=== PATIENT | male | born 2005 | race Caucasian/White ===

== ENCOUNTER 2023-03-25 18:57 | Emergency (ER) | payer OTHER, SELFPAY ==
--- NOTE | 2023-03-25 19:06 | CRLHL7_ITS ---
For Patients: As a result of the Century Cures Act, medical imaging exams and procedure reports are released immediately into your electronic medical record. You may view this report before your referring provider. If you have questions, please contact your health care provider. INDICATION: Chest pain TECHNIQUE: Chest 2 views. COMPARISON: Chest x-ray 12/03/2022 FINDINGS: The heart is at the upper limits of normal in size. The pulmonary vasculature is within normal limits. The lungs are clear without focal consolidation, pleural effusion or pneumothorax. Bones are unremarkable. IMPRESSION: The heart is at the upper limits of normal in size. Dictated by Yany Nava MD @ 03/25/2023 8:37:16 PM Dictated by: Yany Nava MD @ 03/25/2023 20:39:03 (Electronically Signed)
[2023-03-25 19:11] VITALS: BP 119/73; PULSE 83; RESP 18; TEMP 37.8; O2SAT 96; BMI 22.9
[2023-03-25 19:17] LABS: Basophils Absolute Auto 0.02 K/uL (0.00-0.30); Basophils Percent Auto 0.3 % (0.0-3.0); Eosinophils Absolute Auto 0.01 K/uL (0.00-0.50); Eosinophils Percent Auto 0.1 % (0.0-7.0); Hematocrit 41.8 % (37.0-53.0); Hemoglobin* 14.2 gm/dL (13.5-17.5); Immature Granulocytes Abs Auto 0.01 K/uL (0.00-0.30); Immature Granulocytes Pct Auto 0.1 %; Lymphocytes Percent Auto 8.9 % (20-44); Mean Corpuscular HGB Conc 34 gm/dL (32-36); Mean Corpuscular Hemoglobin 31 pg (26-34); Mean Corpuscular Volume 92 fL (80-100); Monocytes Percent Auto 9.8 % (0.0-11.0); Neutrophils Percent Auto 80.8 % (42.0-72.0); Platelet Count* 186 K/uL (140-440); RDW Coefficient of Variation % 11.8 % (11.5-15.5); Red Blood Count 4.55 m/uL (4.30-5.90); White Blood Count* 7.77 K/uL (4.50-11.00)
[2023-03-25 19:27] LABS: Slide Review Reflex No
[2023-03-25 19:32] LABS: Chloride* 99 mmol/L (96-114); Sodium* 135 mmol/L (135-149)
[2023-03-25 19:34] LABS: Creatinine* 1.2 mg/dL (0.5-1.5); Est. Creatinine Clearance* 97.65; Estimated Glomerular Filt Rate 89 ml/min
[2023-03-25 19:35] LABS: Anion Gap 7 mEq/L (7-15); Blood Urea Nitrogen* 29 mg/dL (5-24); Carbon Dioxide* 29 mmol/L (20-32)
[2023-03-25 19:36] LABS: Glucose* 140 mg/dL (60-115)
[2023-03-25 20:00] LABS: PCR FLU A Negative PCR FLU A (Negative); PCR FLU B Negative PCR FLU B (Negative); PCR RSV Negative PCR RSV (Negative)
[2023-03-25 20:29] LABS: SARS PCR* POSITIVE SARS-CoV-2 (Negative); Strep A DNA Probe* NOT DETECTED (Not Detectd)
--- NOTE | 2023-03-25 20:53 | ED.GENADULT ---
HPI - General Adult General Chief complaint: Cough Stated complaint: Chest pain, sore throat, feverish Time Seen by Provider: 03/25/23 20:52 History of Present Illness HPI narrative: LL lung/rib area tightness, cough and sore throat, pt feels hot/ chills. pt states november/december in ICU for pnx , states this feels exactly the same. feels more winded than normal. 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 18-year-old young man presenting to the emergency department with concern of potential recurrence of pneumonia. In particular is feeling a left lower chest pressure. May have been an effusion as well. Has been having some cough and sore throat hot chilled. No fever measured peers Was hospitalized for rapidly progressive pneumonia ultimately in the ICU earlier this year unclear etiology. This feels similar. Generally healthy with no underlying health problems otherwise. No respiratory disease. No diabetes. No particular exposures. Related Data Home Medications Medication Instructions Recorded Confirmed cefuroxime axetil 500 mg tablet 500 mg PO BID 12/03/22 12/03/22 monoxidil 12/03/22 Allergies Allergy/AdvReac Type Severity Reaction Status Date / Time No Known Drug Allergies Allergy Verified 12/03/22 10:15 Review of Systems Status of ROS: Reports: 6 or more systems reviewed and unremarkable except as noted in History and below [facility] Medical History Pneumonia ?J18.9 - Pneumonia, unspecified organism (ICD-10) Surgical History (Updated 03/25/23 @ 21:31 by Sam Aguiar RN) No significant past surgical history Social History Smoking Status: Never smoker How often do you have a drink containing alcohol: never How often do you have six or more drinks on one occasion: Never AUDIT-C Alcohol total score: 0 Non-prescribed substance use: denies use Exam Narrative: Exam Narrative: Pleasant. Looks a little flushed in face. Well-built. NAD. Oropharynx is without erythema. Moist. Neck is supple without lymphadenopathy. Lungs are clear. Heart with regular rate and rhythm. Abdomen is flat soft and nontender. Extremities are well perfused without edema. Intermittent small cough. Sounds congested in the nasopharynx. Const: Vital Signs, click to edit/add: Vital Signs - 24 hr 03/25/23 19:11 03/25/23 21:33 03/25/23 21:34 Temperature 100.1 F H 99.5 F 99.5 F Pulse Rate [Left P ulse Oximeter] 83 87 87 Respiratory Rate 18 18 18 Blood Pressure [Ri ght Upper Arm] 119/73 115/71 115/71 Pulse Oximetry 96 96 Oxygen Delivery Me thod Room Air Room Air Documenting provider has reviewed patient's vital signs: yes Course Vital Signs Vital signs: Initial Vital Signs Temperature 100.1 F H 03/25/23 19:11 Temperature Source Temporal Artery Scan 03/25/23 19:11 Pulse Rate 83 03/25/23 19:11 Respiratory Rate 18 03/25/23 19:11 Blood Pressure 119/73 03/25/23 19:11 Blood Pressure Mean 88 03/25/23 19:11 Blood Pressure Position Sitting 03/25/23 19:11 Pulse Oximetry 96 03/25/23 19:11 Oxygen Delivery Method Room Air 03/25/23 19:11 Vital Signs Temperature 100.1 F H 03/25/23 19:11 Pulse Rate 83 03/25/23 19:11 Respiratory Rate 18 03/25/23 19:11 Blood Pressure 119/73 03/25/23 19:11 Pulse Oximetry 96 03/25/23 19:11 Oxygen Delivery Method Room Air 03/25/23 19:11 Temperature 99.5 F 03/25/23 21:34 Pulse Rate 87 03/25/23 21:34 Respiratory Rate 18 03/25/23 21:34 Blood Pressure 115/71 03/25/23 21:34 Pulse Oximetry 96 03/25/23 21:33 Oxygen Delivery Method Room Air 03/25/23 21:33 Medical Decision Making MDM Narrative Medical decision making narrative: Differential could include recurrence of pneumonia, pulmonary effusion, COVID, pneumothorax, pleuritis, pericarditis. Prior to seeing this patient given history and complaint I had requested chest x-ray and triple swab. Indeed positive for COVID. Reviewing chest x-ray I do not appreciate any recurrence infiltrate. No effusion. No pneumothorax. Vitals are stable albeit with mildly suppressed oxygen saturations. See patient discharge plan. Advised to inform potential contacts. Lab Data Lab results reviewed: Yes I reviewed the patient's lab results Labs: Lab Results 03/25/23 Range/Units 19:09 WBC 7.77 (4.50-11.00) K/uL RBC 4.55 (4.30-5.90) m/uL Hgb 14.2 (13.5-17.5) gm/dL Hct 41.8 (37.0-53.0) % MCV 92 (80-100) fL MCH 31 (26-34) pg MCHC 34 (32-36) gm/dL RDW Coeff of Ayo 11.8 (11.5-15.5) % Plt Count 186 (140-440) K/uL Neut % (Auto) 80.8 H (42.0-72.0) % Lymph % (Auto) 8.9 L (20-44) % Wilbarger % (Auto) 9.8 (0.0-11.0) % Eos % (Auto) 0.1 (0.0-7.0) % Baso % (Auto) 0.3 (0.0-3.0) % Neut # (Auto) 6.30 (1.7-7.0) K/uL Lymph # (Auto) 0.70 L (0.90-2.90) K/uL Wilbarger # (Auto) 0.80 (0.00-0.90) K/UL Eos # (Auto) 0.01 (0.00-0.50) K/uL Baso # (Auto) 0.02 (0.00-0.30) K/uL Abs Immat Gran (auto) 0.01 (0.00-0.30) K/uL Imm/Tot Granulo (auto) 0.1 % Sodium 135 (135-149) mmol/L Potassium 4.0 (3.6-5.1) mmol/L Chloride 99 (96-114) mmol/L Carbon Dioxide 29 (20-32) mmol/L Anion Gap 7 (7-15) mEq/L BUN 29 H (5-24) mg/dL Creatinine 1.2 (0.5-1.5) mg/dL Estimated Creat Clear 97.65 Estimated GFR 89 ml/min Glucose 140 H (60-115) mg/dL Calcium 10.0 (8.4-10.6) mg/dL C-Reactive Protein 1.0 (0.5-1.0) mg/dL SARS-CoV-2 (PCR) POSITIVE SARS-CoV-2 A (Negative) Influenza Type A (PCR) Negative PCR FLU A (Negative) Influenza Type B (PCR) Negative PCR FLU B (Negative) RSV (PCR) Negative PCR RSV (Negative) Group A Strep DNA NOT DETECTED (Not Detectd) Discharge Plan Discharge Clinical Impression: COVID-19 Patient Disposition: Home, Self-Care Condition: Stable Additional Instructions: Stay well-hydrated. Can take ibuprofen or acetaminophen for aches and elevated temperature. Alternative to the ibuprofen might be naproxen. If you're becoming increasingly short of breath, consider getting an oxygen monitor and return to the emergency department for oxygen saturations of 90% or less. Recommendations are to quarantine for 10 days from 1st day of symptoms. Prescriptions: No Action cefuroxime axetil 500 mg tablet 500 mg PO BID monoxidil Patient Comments: hair growth Follow Up/Referrals: Provider,Not a Local [Primary Care Provider] - Stand Alone Forms: [employer] Info Instructions
[2023-03-25 21:33] VITALS: BP 115/71; PULSE 87; RESP 18; TEMP 37.5; O2SAT 96
[2023-03-25 21:34] VITALS: BP 115/71; PULSE 87; RESP 18; TEMP 37.5
== END 2023-03-25 21:34 | disposition home or self-care (01) ==
LOC: ED 21:12
PROVIDERS: Emergency Provider Family Medicine
DX: U07.1 COVID-19 (principal)
CPT/HCPCS: 36415; 71046; 80048; 85025; 86140; 87631; 87651; 99284

== ENCOUNTER 2023-03-31 18:36 | Emergency (ER) | payer OTHER, SELFPAY ==
[2023-03-31 18:42] VITALS: BP 125/69; PULSE 71; RESP 16; TEMP 36.5; O2SAT 100; BMI 22.9
--- NOTE | 2023-03-31 18:55 | CRLHL7_ITS ---
For Patients: As a result of the Cures Act, medical imaging exams and procedure reports are released immediately into your electronic medical record. You may view this report before your referring provider. If you have questions, please contact your health care provider. INDICATION: Trauma with left TMJ pain. TECHNIQUE: CT maxillofacial without contrast. COMPARISON: None. FINDINGS: Facial bones: No fractures or bone lesions. Specifically the nasal bones, temporomandibular joints, maxilla and mandible appear intact. Orbits and globes: Unremarkable. Globes are intact. No sign of intraorbital hemorrhage or emphysema. 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 Soft tissues: Unremarkable. IMPRESSION: No sign of acute injury. No finding to explain left TMJ pain. Please note that all CT scans at this facility use dose modulation, iterative reconstruction, and/or weight-based dosing when appropriate to reduce radiation dose to as low as reasonably achievable. Dictated by Cl Conde MD @ 03/31/2023 8:31:50 PM (Electronically Signed)
[2023-03-31 18:59] VITALS: O2SAT 97
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
[2023-03-31 21:10] VITALS: BP 105/57; PULSE 67; RESP 16; O2SAT 100
== END 2023-03-31 21:13 | disposition home or self-care (01) ==
PROVIDERS: Emergency Provider Family Medicine
DX: S00.83XA Contusion of other part of head, initial encounter (principal); M26.609 Unspecified temporomandibular joint disorder, unspecified side; W21.02XA Struck by soccer ball, initial encounter; Y93.66 Activity, soccer
CPT/HCPCS: 70486; 99283; 99284

== ENCOUNTER 2024-05-25 15:01 | Outpatient (RCR) | payer BC, SELFPAY | END 2024-09-22 23:59 | disposition home or self-care (01) | PROVIDERS: Visit Provider Student in an Organized Health Care Education/Training Program | DX: M25.571 Pain in right ankle and joints of right foot (principal); Z51.89 Encounter for other specified aftercare | CPT/HCPCS: 97110; 97161 ==

== ENCOUNTER 2024-09-08 02:03 | Emergency (ER) | payer BC, SELFPAY ==
--- OUTSIDE RECORDS SUMMARY | 2024-09-08 02:06 | XMS_ITS | Encounter Summary ---
Author Organization [facility] Address [address] [place] [address] Care Team Providers Care Health Program Manager Name Role Phone Kvng Hollingsworth MD Primary Care Provider + [phone] Angela Cordero MD Primary Care Provider [phone] Moises Lawrence MD Primary Care Provider [phone] Encounter Details Date Type Department Care Team (Late st Contact Info) Description 09/03/2004 [facility] VISIT [facility] Chaitanya Beckham MD Address Alert - Do Not Mail [address] [place] [address] DIARRHEA Social History Tobacco Use Types Packs/Day Years Used Date Smoking Tobacco: Never Assessed Sex and Gender Information Value Date Recorded Sex Assigned at Male 09/19/2023 7:00 PM PDT Legal Sex Male 7:09 AM PST Gender Identity Male 09/19/2023 7:00 PM PDT Sexual Orientation Straight 09/19/2023 7: 00 PM PDT documented as of this encounter Plan of Treatment Not on file documented as of this encounter Visit Diagnoses Diagnosis DIARRHEA Diarrhea documented in this encounter Care Teams Health Program Manager Relationship Specialty Start Date End Date Kvng Hollingsworth MD [facility] [address] [place] [address] PCP - General Pediatric Medicine 11/08/08 12/10/22 [place] [address] [facility], [address] [place] [address] PCP - General Family Practice 12/11/22 01/24/24 Moises Lawrence MD [address], [address] [address] PCP - General Family Practice 01/25/24 documented as of this encounter
--- OUTSIDE RECORDS SUMMARY | 2024-09-08 02:06 | XMS_ITS | Clinical Summary ---
Author Organization [facility] Address [address] [place] [address] Phone Care Team Providers Care Sfdc Architect Name Role Phone Kvng Hollingsworth Primary Care Provider [phone] Allergies No known active allergies Medications clindamycin 1 % lotion Apply a thin film to the face in the morning 60 mL 11 07/13/2020 Active Doxycycline Hyclate 100 MG tablet Take 1 tablet by mouth 2 times daily.With food and water 60 tablet 5 10/12/2020 Active isotretinoin 40 MG capsule Take 1 Cap by mouth twice a day. Active minoxidil 2.5 MG tabletIndicatio ns:Androgenetic alopecia Take 2.5 mg (1 tab) po qhs 90 tablet 3 06/24/2024 Active Finasteride 1 MG tabletIndicatio ns:Androgenetic alopecia Take 1 mg by mouth daily. 90 tablet 3 06/24/2024 Active ketoconazole 2 % shampooIndicati ons:Seborrheic dermatitis Use every other day. Let sit in hair 5 minutes before rinsing. 120 mL 11 06/24/2024 Active Active Problems Problem Noted Date Diagnosed Date Medication management 03/10/2019 Abnormal LFTs (liver function tests) 02/28/2019 On Accutane therapy 02/24/2019 Acne 12/21/2018 Encounters Date Type Department Care Team Description 06/24/2024 10:45 AM [facility] Office [facility] [address] [place] [address] Chester Rios MD Androgenetic alopecia (Primary Dx); Seborrheic dermatitis; Epidermoid cyst of skin 06/23/2024 10:00 AM PST Office Visit [facility] [address] [place] [address] Chauncey Miller III, DPM Achilles tendinosis of both ankles (Primary Dx); Bilateral ankle pain, unspecified chronicity; Jarocho's deformity of both heels; Gastrocnemius equinus, unspecified laterality 06/23/2024 9:05 AM [facility] Ancillary Procedure [facility] [address] [place] [address] Chauncey Miller III, DPM from Last 3 Months Social History Tobacco Use Types Packs/Day Years Used Date Smoking Tobacco: Never Sex and Gender Information Value Date Recorded Sex Assigned at Not on file Legal Sex Male 3:57 PM PDT Gender Identity Not on file Sexual Orientation Not on file Last Filed Vital Signs Vital Sign Reading Time Taken Comments Blood Pressure 90/58 03/08/2019 2:59 PM PDT Pulse 48 03/08/2019 2:59 PM PDT Temperature - - Respiratory Rate - - Oxygen Saturation 98% 03/08/2019 2:59 PM PDT Inhaled Oxygen Concentration - - Weight 59.9 kg (132 lb) 03/08/2019 2:59 PM PDT Height 174 cm (5' 8.5) 03/08/2019 2:59 PM PDT Body Mass Index 19.78 03/08/2019 2:59 PM PDT Plan of Treatment Health Maintenance Due Date Last Done Comments Depression Screening 2015 HIV Screening 2021 Hepatitis C Screening 2021 COVID-19 Vaccine ( season) 2024 06/23/2022, 06/30/2021, 11/09/2020, Additional history exists Influenza Vaccine (#1) 2024 2, 06/30/2021, 06/30/2021, Additional history exists DTaP/Td/Tdap Vaccines (7 - Td or Tdap) 08/22/2024 08/22/2014, 02/10/2007, 08/07/2004, Additional history exists Well Child Visit 01/25/2025 01/26/2024 Pneumococcal Vaccine Aged Out 2003, 2003, 2003 No longer eligible based on patient's age to complete this topic Hepatitis B Vaccines Completed 02/05/2004, 2003, 2003 HPV Vaccines Completed 05/27/2016, 08/22/2014 Procedures Procedure Name Priority Date/Time Associated Diagnosis Comments XR ANKLE BILATERAL 3V Routine 06/23/2024 9:08 AM PST Bilateral ankle pain, unspecified chronicity from Last 3 Months Results * XR ANKLE BILATERAL 3V (06/23/2024 9:08 AM PST) Anatomical Region Laterality Modality Computed Radiogr aphy Impressions 06/23/2024 12:41 PM PST 3 views of each ankle reviewed via x-ray. Right ankle: No acute fracture or dislocation. Ankle mortise remains intact. No osteochondral defect. No abnormal periosteal reaction. Left ankle: No acute fracture or dislocation. Ankle mortise remains intact. No osteochondral defect. No abnormal periosteal reaction. Chauncey Miller III, DPM IMAGING - GENERAL Fi nal Result from Last 3 Months Insurance [employer] Member Subscriber Plan / Payer (Ef fective 2023-Present) Name:Tha Lincoln Relation to Subscriber:Child Name:Radha Bajwa Date of :1965 Address: [address] [place] [id number] Payer ID:Not on file Type:Not on file Address: [place] [id number] [employer] [place] [id number] [employer] Care Teams Sfdc Architect Relationship Specialty Start Date End Date Kvng Hollingsworth [address] [place] [address] PCP - General 06/25/16
--- OUTSIDE RECORDS SUMMARY | 2024-09-08 02:06 | XMS_ITS | Encounter Summary ---
Author Organization [facility] Address [address] [place] [address] Care Team Providers Care Shoe Cutter Name Role Phone Kvng Hollingsworth MD Primary Care Provider + [phone] Angela Cordero MD Primary Care Provider [phone] Moises Lawrence MD Primary Care Provider [phone] Encounter Details Date Type Department Care Team (Late st Contact Info) Description 02/15/2005 [facility] VISIT [facility] Jeferson Osullivan MD [address] [id number] [facility] DISLOC ELBOW NOS; FALL + STRIKE OBJECT NEC Social History Tobacco Use Types Packs/Day Years [...] as of this encounter Visit Diagnoses Diagnosis CLSD DISLOC ELBOW NOS Closed unspecified dislocation of elbow FALL + STRIKE OBJECT NEC Fall resulting in striking against other object documented in this encounter Care Teams Shoe Cutter Relationship Specialty Start Date End Date Kvng Hollingsworth MD [facility] [address] [place] [address] PCP - General Pediatric Medicine 11/08/08 12/10/22 [place] [address] [facility] [address] [place] [address] PCP - General Family Practice 12/11/22 01/24/24 Moises Lawrence MD [address] [address] PCP - General Family Practice 01/25/24 documented as of this encounter
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
--- OUTSIDE RECORDS SUMMARY | 2024-09-08 02:06 | XMS_ITS | Clinical Summary ---
Author Organization [facility] Address [address] [place] [address] Care Team Providers Care Hobbing Press Operator Name Role Phone Moises Lawrence MD Primary Care Provider [phone] Allergies No known active allergies Medications minoxidil 2.5 MG tablet Take 1.25 mg (1/2 tab) po qhs x 1 month, increase to 2.5 mg (1 tab) po qhs as tolerated. 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 Review of CBC now normal with normal WBC differential following this, and CTA reassuring (obtained after positive D-dimer). Lung exam 01/2024 at baseline normal without wheeze, with good bilateral breath sounds. Patient reports no exercise intolerance and ix very physically active every day. We will monitor clinically. We will consider PFTs if recurrent pneumonia. Resolved Problems Problem Noted Date Diagnosed Date Resolved Date Elevated platelet count 12/12/202201/04 Assessment & Plan (12/12/2022 6:38 AM PDT): Elevated platelets, likely reactive due to recent severe PNA requiring hospitalization, repeat in 1 week at scheduled 12/23 appointment Acute respiratory failure with hypoxia 11/26/2022 12/11/2022 Bilateral pneumonia 11/26/2022 12/12/19 23 Sepsis with acute organ dysfunction 11/26/2022 12/11/2022 Abnormal LFTs (liver function tests) 02/28/2019 12/11/2022 On Accutane therapy 02/24/2019 12/12/19 23 Acne vulgaris 12/21/2018 12/11/2022 Immunizations Name Administration Dates Next Due COVID-19 Pfizer mRNA monoval ent 12 yrs and older 10/18/2020 DTaP (Infanrix) 02/10/2007, 5,2003,05/31,2003 HPV 9-valent (Gardasil 9) 05/27/2016 HPV quadrivalent (Gardasil) 08/22/2014 Hepatitis A pediatric/adolescent 03/04/2006,02/05 Hepatitis B pediatric/adolescent 02/05/2004,07/07,2003 Hib PRP-T (ActHIB) 02/05/2004, 4,2003,04/10 Influenza live nasal trivale nt (FluMist) 07/21/2011,03/05/2010,02/20/2009 Influenza quadrivalent 05/27/2016 Influenza quadrivalent PF 06/23/2022,06/30/2021 Influenza trivalent 04/06/2015, 4,07/19/2012,06/16 Influenza trivalent PF 08/17/2007,06/18/2005 Influenza, unspecified 04/23/2004 MMR 02/10/2007,02/05/2004 Meningococcal ACWY conjugate (Menactra) 01/05/2020,08/22/2014 Novel influenza Q4T1-05, all formulations 05/02/2009 Pneumococcal conjugate PCV7 (Prevnar) 2003 ,2003,2003 Poliovirus inactivated IPV (IPOL) 2006,08/07/2004,2003,05/31,2003 Tdap 08/22/2014 Varicella live (Varivax) 02/10/2007,08/07/2004 Family History Medical History Relation Comments No Known Problems Brother No Known Problems Father No Known Problems Maternal Grandfather No Known Problems Maternal Grandmother Leukemia Mother age 14-15 No Known Problems Paternal Grandfather No Known Problems Paternal Grandmother No Known Problems Sister Relation Status Comments Brother Alive Father Alive Maternal Grandfather Alive Maternal Grandmother Alive Mother Alive Paternal Grandfather Alive Paternal Grandmother Alive Sister Alive Social History Tobacco Use Types Packs/Day Years Used Date Smoking Tobacco: Never Smokeless Tobacco: Never Tobacco Cessation:Counseling Given: Not Answered Alcohol Use Standard Drinks/Week Comments Never 0 (1 standard drink = 0.6 oz pur e alcohol) PHQ-2 Answer Date Recorded PHQ2 Total Score 0 01/26/2024 Exercise Vital Sign Answer Date Recorde d On average, how many days pe r week do you engage in moderate to strenuous exercise (like a brisk walk)? 7 days 12/11/2022 On average, how many minutes do you engage in exercise at this level? 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 Not on file Not on file Not on file Last Filed Vital Signs Vital Sign Reading Time Taken Comments Blood Pressure 126/74 01/26/2024 3:50 PM PDT Pulse 45 01/26/2024 3:50 PM PDT Temperature 36.8 C (98.2 F) 01/26/2024 3:50 PM PDT Respiratory Rate 15 01/26/2024 3:50 PM PDT Oxygen Saturation 100% 01/26/2024 3:50 PM PDT Inhaled Oxygen Concentration - - Weight 72.6 kg (160 lb) 01/26/2024 3:50 PM PDT Height 175.3 cm (5' 9) 01/26/2024 3:50 PM PDT Body Mass Index 23.63 01/26/2024 3:50 PM PDT Plan of Treatment Health Maintenance Due Date Last Done Comments Meningococcal B Vaccine (1 of 2 - Standard) 2019 COVID-19 Vaccine ( season) 2024 06/23/2022, 06/30/2021, 11/09/2020, Additional history exists Influenza Vaccine (#1) 2024 , 06/30/2021, 05/27/2016, Additional history exists DTaP, Tdap and Td Vaccines (7 - Td or Tdap) 08/22/2024 08/22/2014, 02/10/2007, 08/07/2004, Additional history exists Depression Screening (PHQ-2) 01/25/2025 01/26/2024 Well Care: 16y-21y 01/25/2025 01/26/2024 Pneumococcal Vaccine: Pediatrics (0-5 years) and At-Risk Patients (6-49 years) Aged Out 2003, 2003, 2003 No longer eligible based on patient's age to complete this topic Hepatitis B Vaccine Completed 02/05/2004, 2003, 2003 Hepatitis A Vaccine Completed 03/04/2006, 5 HPV Vaccine Completed 05/27/2016, 08/22/2014 HIV Screening Addressed 07/07/2022 Overridden wit h the intention of not completing the topic Hepatitis C Screening Completed 01/26/2024 Procedures Procedure Name Priority Date/Time Associated Diagnosis Comments HEPATITIS C AB WITH REFLEX PCR Remote Lab 01/26/2024 4:28 PM PDT Need for hepatitis C screening test from Last 3 Months or Most Recently Relevant to Health Maintenance Results * Hepatitis C Ab with REFLEX PCR (01/26/2024 4:28 PM PDT) Hepatitis C Antibody w/Rflx PCR Nonreactive NREAC 01/27/2024 9:27 AM PDT Lab Med, Virology Hepatitis C Antibody Interpretation No evidence of antibody to hepatitis C virus (HCV). Anti-HCV may develop slowly (6 weeks - 6 months) over the course of hepatitis C virus infection. Rarely it may be absent in cases of chronic infection. Anti-HCV may also disappear after recovery from acute, self-limited disease. 01/27/2024 9:27 AM PDT [facility] Lab Med, Virology Blood specimen (specimen) 01/26/2024 4:28 PM PDT us Moises Lawrence MD LAB BLOOD ORDERABLES Final Re sult LAB MED, VIROLOGY [address] [place] [address] Lab Med, Virology [address] [place] [address] from Last 3 Months or Most Recently Relevant to Health Maintenance Insurance [facility] [employer] Care Teams Hobbing Press Operator Relationship Specialty Start Date End Date Moises Lawrence MD [address], [facility] [address] [place] [address] PCP - General Family Practice 01/25/24
--- OUTSIDE RECORDS SUMMARY | 2024-09-08 02:06 | XMS_ITS | Clinical Summary ---
Author Organization [facility] Address [address] [place] [address] Care Team Providers Care Process Worker Name Role Phone Pcp, No Primary Care Provider Unavailabl e Allergies No known active allergies Medications fluticasone (50 mcg per actuation) nasal solution (FLONASE) Inhale 1 [place] into affected nostril(s) once daily. Active minoxidiL (LONITEN) 2.5 mg tab Take 2.5 mg by mouth at bedtime. Active loratadine (Claritin) 10 mg tablet Take 10 mg by mouth once daily if needed for Allergy Symptoms. 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 Bilateral pneumonia 11/26/2022 Sepsis with acute organ dysfunction 11/26/2022 Acne 12/21/2018 Resolved Problems Problem Noted Date Diagnosed Date Resolved Date Acute respiratory failure with hypoxia 11/26/2022 05/13/2024 Family History Medical History Relation Name Comments Leukemia Mother Relation Name Status Comments Mother Social History Tobacco Use Types Packs/Day Years Used Date Smoking Tobacco: Never Smokeless Tobacco: Never Tobacco Cessation:Counseling Given: Yes Alcohol Use Standard Drinks/Week Comments Yes 0 (1 standard drink = 0.6 oz pur e alcohol) mild / social Sex and Gender Information Value Date Recorded Sex Assigned at Not on file Legal Sex Male 2:27 PM CDT Gender Identity Not on file Sexual Orientation Not on file Obstetrics History Last Filed Vital Signs Vital Sign Reading Time Taken Comments Blood Pressure 118/68 05/13/2024 10:41 AM DRUG ABUSE TECHNICIAN Pulse 50 05/13/2024 10:41 AM DRUG ABUSE TECHNICIAN Temperature 36.8 C (98.2 F) 11/29/2022 8:17 AM CDT Respiratory Rate 20 11/29/2022 8:17 AM CDT Oxygen Saturation 98% 05/13/2024 10:41 AM DRUG ABUSE TECHNICIAN Inhaled Oxygen Concentration - - Weight 72.6 kg (160 lb) 05/11/2023 3:20 PM DRUG ABUSE TECHNICIAN Height 175.3 cm (5' 9) 11/27/2022 5:00 AM CDT Body Mass Index - - Plan of Treatment Health Maintenance Due Date Last Done Comments Tdap 2014 Depression screening for age 12+ 2015 HIV for age 15-65 2018 HPV series for age 9-26 (1 - Male 3-dose series) 2018 BMI (ht and wt on same day) for age 18+ 2021 Hepatitis C screening for age 18-79 2021 Tetanus booster 2023 COVID-19 vaccine series ( season) 2024 06/23/2022, 06/30/2021, 11/09/2020, Additional history exists Influenza for age 9-49 03/06/2024 Meningococcal series for age 11-21 Aged Out No longer eligible based on patient's age to complete this topic Pneumococcal series for age 6-49 Aged Out No longer eligible based on patient's age to complete this topic Insurance [id number] Advance Directives * Full Code (Latest Code Status on File) Date Activated Date Inactivated Comments 11/26/2022 9:38 PM 11/29/2022 1:53 PM Question Answer Comments Code Status Discussion: Other Care Teams Process Worker Relationship Specialty Start Date End Date Pcp, No . PCP - General 11/26/22
--- OUTSIDE RECORDS SUMMARY | 2024-09-08 02:06 | XMS_ITS | Clinical Summary ---
Author Organization [facility] Address [address] [place] [address] Care Team Providers Care Accounting Director Name Role Phone Unavailable Primary Care Provider Unavailabl e Source Comments NOTE: The information displayed by Care Everywhere is extracted from the complete medical record and may not identify all current or past patient conditions.[facility] Immunizations Immunization Administration Dates Next Due *STANDARD DOSE SYRINGE* (FluARIX,FluLAVAL,FluZONE) (6+ mos) TRI 08/17/2007,06/18/2005 *STANDARD DOSE SYRINGE* (FluLAVAL,FluZONE,FluARIX or AFLURIA) (6+ mos) QUAD 06/23/2022,06/30/2021 *VIAL* FluZONE/FluLAVAL (3+ yrs) QUAD 05/27/2016 DTaP (Diphtheria, Tetanus, a cellular Pertussis) 02/10/2007,08/07/2004,2003,05/31,2003 FluVIRIN (4+ years) Tri *VIAL* 5,04/24/2014,07/19/2012,06/16 H1N1 Influenza (.50 not PF) 05/02/2009 HPV, 9-Valent (GARDASIL 9, H uman Papillomavirus) 05/27/2016 HPV, Quadrivalent (GARDASIL 4) 08/22/2014 HepA (Hepatitis A) 03/04/2006,03/04/2005 HepB (Hepatitis B) 02/05/2004,2003, 003 Hib (ACTHIB/HIBERIX,PRP-T) 02/05/2004,,2003,04/10 IPV (Polio) 02/10/2007, 5,2003,05/31,2003 Influenza (.25 PF) 08/17/2007,06/18/2005 Influenza (.50 PF) 04/23/2004 Influenza (.50 not PF) 06/16/2006 Influenza (0.5 not PF) 07/19/2012 Influenza (Flumist) 07/21/2011,03/05/2010,2008 Influenza, unspecified formulation 04/23/2004 MMR (Measles, Mumps, Rubella) 02/10/2007, 004 Meningococcal Conjugate Vacc ine (MENACTRA) 01/05/2020,08/22/2014 Meningococcal Conjugate Vacc ine (MENVEO) 08/22/2014 Novel Influenza H1N1, unspec ified formulation 05/02/2009 PCV7 (Pneumococcal Conjugate Vaccine 7 valent) 2003,2003,2003 Pfizer SARS-CoV-2 Vaccinatio n (12 + y/o) (PURPLE CAP) 06/30/2021,11/09/2020,10/18/2020 Pfizer SARS-CoV-2 Vaccinatio n (12 + y/o)(Bivalent Formulation)(MANZANARES CAP) 06/23/2022 Tdap (Tetanus, Diphtheria, a cellular Pertussis) 08/22/2014 Varicella 02/10/2007,08/07/2004 Social History Tobacco Use Types Packs/Day Years Used Date Smoking Tobacco: Never Assessed Sex and Gender Information Value Date Recorded Sex Assigned at Not on file Legal Sex Male 9:30 PM PST Gender Identity Not on file Sexual Orientation Not on file Plan of Treatment Health Maintenance Due Date Last Done Comments Adult HIV Screen (1-time) 2018 Hep C Screening (1-time) 2021 FLU VACCINE (#1) 03/06/2024 06/23/2022, , 05/27/2016, Additional history exists Vaccine: COVID-19 ( season) 2024 06/23/2022, 06/30/2021, 11/09/2020, Additional history exists Vaccine: [id number] (7 - T d or Tdap) 08/22/2024 08/22/2014, 02/10/2007, 08/07/2004, Additional history exists Vaccine: HPV Completed 05/27/2016, 08/22/2014 Advance Directives For more information, please contact: [phone] Documents on File Type Date Recorded Patient Research Physicist Expl anation Durable Power of Content Engineer
--- OUTSIDE RECORDS SUMMARY | 2024-09-08 02:06 | XMS_ITS | Clinical Summary ---
Author Organization [facility] Address [address] [place] [address] Care Team Providers Care Neuroscientist Name Role Phone Kvng Hollingsworth MD Primary Care Provider [phone] Allergies No known active allergies Medications doxycycline (VIBRA-TABS) 100 mg tablet 08/11/2020 Active clindamycin (CLEOCIN T) 1 % lotion 07/13/2020 Active Social History Tobacco Use Types Packs/Day Years Used Date Smoking Tobacco: Never Assessed Financial Resource Strain Answer Date R ecorded Financial Resource Strain Not on file 2022 0 06/15/2023 Food Insecurity Answer Date Recorded Worried About Running Out of Food in the Last Ye ar Not on file 06/15/2023 Ran Out of Food in the Last Year Not on file 06/15/2023 Difficult to Find Nutritious Food in the Last Ye ar Not on file 06/15/2023 0 06/15/2023 Transportation Needs Answer Date Record ed Lack of Transportation (Medical) Not on file 06/15/2023 Lack of Transportation (Non-Medical) Not on file 06/15/2023 0 06/15/2023 Housing Stability Answer Date Recorded Housing Situation Today Not on file 06/15/20 23 Worried About Stable Housing Next Two Months Not on file 06/15/[address] You [address] Not on file 06/15/2023 0 06/15/2023 Sex and Gender Information Value Date Recorded Sex Assigned at Male 01/12/2018 12:34 PM PDT Legal Sex Male 6:10 AM PST Gender Identity Not on file Sexual Orientation Not on file Last Filed Vital Signs Vital Sign Reading Time Taken Comments Blood Pressure 121/66 09/08/2020 3:28 PM PST Pulse 71 09/08/2020 3:28 PM PST Temperature 36.9 C (98.4 F) 09/08/2020 3:28 PM PST Respiratory Rate 28 09/08/2020 3:28 PM PST Oxygen Saturation 100% 09/08/2020 3:28 PM PST Inhaled Oxygen Concentration - - Weight 67 kg (147 lb 11.3 oz) 09/08/2020 3:25 PM PST Height 141 cm (4' 7.51) 05/22/2014 1:14 PM PST Body Mass Index - - Plan of Treatment Health Maintenance Due Date Last Done Comments MMR Vaccines (1 of 1 - Stand elliot series) 01/29/2004 DTaP/Tdap/Td Vaccines (1 - Tdap) 2010 Varicella Vaccine (1 of 2 - 13+ 2-dose series) 01/29/2016 HPV Vaccines (1 - Male 3-dos e series) 2018 Meningococcal B Vaccine (1 o f 2 - Standard) 2019 Hepatitis B Vaccines (1 of 3 - 19+ 3-dose series) 2022 COVID-19 Vaccine (1 - 2023-2 5 season) 2024 Influenza Vaccine (#1) 2024 HIB Vaccines Aged Out No longer eligi ble based on patient's age to complete this topic Hepatitis A Vaccines Aged Out No long er eligible based on patient's age to complete this topic Meningococcal Vaccine Aged Out No amada shawn eligible based on patient's age to complete this topic Pneumococcal Vaccine Aged Out No long er eligible based on patient's age to complete this topic Polio Vaccine Aged Out No longer elig ible based on patient's age to complete this topic Respiratory Syncytial Virus (RSV) Aged Out No longer eligible based on patient's age to complete this topic Rotavirus Vaccines Aged Out No longer eligible based on patient's age to complete this topic Insurance [employer] Care Teams Neuroscientist Relationship Specialty Start Date End Date Kvng Hollingsworth MD [address] [place] [phone] PCP - General 03/20/08
--- OUTSIDE RECORDS SUMMARY | 2024-09-08 02:06 | XMS_ITS | Clinical Summary ---
Author Organization [facility] Address [address] [place] [address] Care Team Providers Care Opener Name Role Phone Kvng Hollingsworth MD Primary Care Provider [phone] Allergies No known active allergies Medications minoxidil [...] Health Maintenance Due Date Last Done Comments Hepatitis C Screening 2003 Well Child Check 2006 Human Immunodeficiency Virus (HIV) Screening 2018 COVID-19 Vaccine (5 - 4-2 5 season) 2024 06/23/2022, 06/30/2021, 11/09/2020, Additional history exists Vaccine: Influenza (#1) 2024 06/23/20, 06/30/2021, 05/27/2016, Additional history exists Vaccine: Dtap/Tdap/Td (7 - T d or Tdap) 08/22/2024 08/22/2014, 02/10/2007, 08/07/2004, Additional history exists Vaccine: Hib Completed 02/05/2004, 07/07, 2003, Additional history exists Vaccine: HPV Completed 05/27/2016, 08/22/2014 Insurance [facility] [employer] PPO Care Teams Opener Relationship Specialty Start Date End Date Kvng Hollingsworth MD [address] [place] [address] PCP - General 12/13/18
--- OUTSIDE RECORDS SUMMARY | 2024-09-08 02:07 | XMS_ITS | Referral Summary ---
Author Organization [facility] Address [address] [place] [address] Phone Care Team Providers Care Oracle Manager Name Role Phone Kvng Hollingsworth Primary Care Provider [phone] Encounters Date Type Department Care Team Description 06/24/2024 10:45 AM [facility] Office Visit [facility] Dermatology [address] [place] [address] Chester Rios MD Androgenetic alopecia (Primary Dx); Seborrheic dermatitis; Epidermoid cyst of skin 06/23/2024 9:05 AM [facility] Ancillary Procedure [facility] [address] [place] [address] Chauncey Miller III, DPM 06/23/2024 10:00 AM [facility] Office Visit [facility] Podiatry [address] [place] [address] Chauncey Miller III, DPM Achilles tendinosis of both ankles (Primary Dx); Bilateral ankle pain, unspecified chronicity; Jarocho's deformity of both heels; Gastrocnemius equinus, unspecified laterality from Last 3 Months Allergies No known active allergies Medications clindamycin [...] 02/28/2019 On Accutane therapy 02/24/2019 Acne 12/21/2018 Social History Tobacco Use Types Packs/Day Years [...] 03/08/2019 2:59 PM PDT Plan of Treatment Not on file Procedures Procedure Name Priority Date/Time Associated Diagnosis [...] Last 3 Months Insurance [employer] [place] [id number] [facility] [employer] Care Teams Oracle Manager Relationship Specialty Start Date End Date Kvng Hollingsworth [address] [place] [address] PCP - General 06/25/16
[2024-09-08 02:10] VITALS: BP 144/76; PULSE 80; RESP 21; TEMP 37.2; O2SAT 100; BMI 23.6
[2024-09-08] MEDS: ONDANSETRON 2 MG/ML inj 4 MG IVP (02:45)
[2024-09-08] MEDS: 0.9 % SODIUM CHLORIDE 1000 ml 1,000 ML IV (02:46)
[2024-09-08 02:47] LABS: Basophils Absolute Auto 0.02 K/uL (0.00-0.30); Basophils Percent Auto 0.2 % (0.0-3.0); Eosinophils Absolute Auto 0.06 K/uL (0.00-0.50); Eosinophils Percent Auto 0.6 % (0.0-7.0); Hematocrit 49.1 % (37.0-53.0); Hemoglobin* 16.6 gm/dL (13.5-17.5); Lymphocytes Percent Auto 6.7 % (20-44); Mean Corpuscular HGB Conc 34 gm/dL (32-36); Mean Corpuscular Hemoglobin 31 pg (26-34); Mean Corpuscular Volume 91 fL (80-100); Monocytes Percent Auto 5.1 % (0.0-11.0); Neutrophils Percent Auto 86.4 % (42.0-72.0); Platelet Count* 221 K/uL (140-440); RDW Coefficient of Variation % 12.1 % (11.5-15.5); Red Blood Count 5.41 m/uL (4.30-5.90)
[2024-09-08 02:52] LABS: Slide Review Reflex No
--- NOTE | 2024-09-08 02:54 | ED.ANXIETY ---
HPI - Anxiety General Date Seen: 09/08/24 Chief Complaint: Anxiety Stated Complaint: mental health issue/anxiety Time Seen by Provider: 09/08/24 02:16 Source: patient Mode of arrival: ambulatory Limitations: no limitations History of Present Illness HPI narrative: Patient is a 19-year-old [employer] student who had couple of episodes of vomiting tonight. He still feels nauseated. He had one episode of diarrhea since his arrival in the ER but none prior. No hematemesis. After his last episode of vomiting he felt lightheaded and short of breath. This shortness of breath triggered memories of that admission for respiratory failure two years ago. This made him anxious and panicky. He denies anxiety in general is not on any medications for anxiety. His only medications are finasteride and minoxidil for hair loss. No abdominal pain. No fevers or chills. No questionable food. Related Data Home Medications ?Medication ?Instructions ?Recorded ?Confirmed monoxidil 12/03/22 Allergies Allergy/AdvReac Type Severity Reaction Status Date / Time No Known Drug Allergies Allergy Verified 09/08/24 02:13 Review of Systems Narrative: Review of systems is outlined above otherwise noted to be negative. 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 HEENT: Conjunctiva clear. Posterior pharynx is clear without erythema or exudate. Neck is supple without adenopathy Lungs: Clear to auscultation in all baltazar. No wheezes, rales, rhonchi. Heart: Regular rate and rhythm without murmur. Abdomen: Soft and nontender. No guarding, rigidity, rebound. Bowel sounds are normal. No palpable masses. Extremities: No cyanosis or edema. Good distal pulses. Skin: No abnormalities noted of the exposed skin. Neurologic: Awake, alert, fully oriented. He is very anxious. Neurologic exam is nonfocal. Const: Vital Signs, click to edit/add: Vital Signs - 24 hr 09/08/24 02:10 Temperature 99.0 F Pulse Rate [Right Pulse Oximeter] 80 Respiratory Rate 21 Blood Pressure [Ri ght Upper Arm] 144/76 H Pulse Oximetry 100 Oxygen Delivery Me thod Room Air Course Course ED Course: Patient seen and examined. IV is established he is given a L of normal saline as well as Zofran 4 mg IV. Labs are drawn. Reevaluation(s) Reevaluation #1: CBC is normal. Basic metabolic panel is normal other than a BUN of 39. LFTs show a bilirubin of 2.1 with a normal direct bili, AST is 51. Lipase is normal. His nausea resolved with the Zofran. He declined a need for anything for anxiety. He is comfortable with discharge. Vital Signs Vital signs: Initial Vital Signs Temperature 99.0 F 09/08/24 02:10 Temperature Source Temporal Artery Scan 09/08/24 02:10 Pulse Rate 80 09/08/24 02:10 Pulse Rhythm Regular 09/08/24 02:10 Pulse Strength 3+ Normal 09/08/24 02:10 Respiratory Rate 21 09/08/24 02:10 Blood Pressure 144/76 H 09/08/24 02:10 Blood Pressure Mean 98 09/08/24 02:10 Blood Pressure Position Sitting 09/08/24 02:10 Pulse Oximetry 100 09/08/24 02:10 Oxygen Delivery Method Room Air 09/08/24 02:10 Vital Signs Temperature 99.0 F 09/08/24 02:10 Pulse Rate 80 09/08/24 02:10 Respiratory Rate 21 09/08/24 02:10 Blood Pressure 144/76 H 09/08/24 02:10 Pulse Oximetry 100 09/08/24 02:10 Oxygen Delivery Method Room Air 09/08/24 02:10 Temperature 99.0 F 09/08/24 02:10 Pulse Rate 80 09/08/24 02:10 Respiratory Rate 21 09/08/24 02:10 Blood Pressure 144/76 H 09/08/24 02:10 Pulse Oximetry 100 09/08/24 02:10 Oxygen Delivery Method Room Air 09/08/24 02:10 Medications Administered Medications: Generic Name Dose Route Start Last Admin Trade Name Freq PRN Reason Stop Dose Admin Sodium Chloride 1,000 mls @ 1,000 mls/hr 09/08/24 02:28 09/08/24 02:46 0.9 % Sodium Chloride 1000 Ml IV 09/08/24 03:27 1,000 mls/hr .Q1H JERI Administration Discontinued Medications Generic Name Dose Route Start Last Admin Trade Name Mayankq PRN Reason Stop Dose Admin Ondansetron HCl 4 mg 09/08/24 02:27 09/08/24 02:45 Ondansetron 2 Mg/Ml Inj IVP 09/08/24 02:28 4 mg ONCE ONE Administration MDM - Anxiety Lab Data Labs: Lab Results 09/08/24 Range/Units 02:35 WBC 9.90 (4.50-11.00) K/uL RBC 5.41 (4.30-5.90) m/uL Hgb 16.6 (13.5-17.5) gm/dL Hct 49.1 (37.0-53.0) % MCV 91 (80-100) fL MCH 31 (26-34) pg MCHC 34 (32-36) gm/dL RDW Coeff of Ayo 12.1 (11.5-15.5) % Plt Count 221 (140-440) K/uL Neut % (Auto) 86.4 H (42.0-72.0) % Lymph % (Auto) 6.7 L (20-44) % [place] % (Auto) 5.1 (0.0-11.0) % Eos % (Auto) 0.6 (0.0-7.0) % Baso % (Auto) 0.2 (0.0-3.0) % Neut # (Auto) 8.60 H (1.7-7.0) K/uL Lymph # (Auto) 0.70 L (0.90-2.90) K/uL [place] # (Auto) 0.50 (0.00-0.90) K/UL Eos # (Auto) 0.06 (0.00-0.50) K/uL Baso # (Auto) 0.02 (0.00-0.30) K/uL Abs Immat Gran (auto) 0.10 (0.00-0.30) K/uL Imm/Tot Granulo (auto) 1.0 % Sodium 137 (135-149) mmol/L Potassium 4.6 (3.6-5.1) mmol/L Chloride 98 (96-114) mmol/L Carbon Dioxide 28 (20-32) mmol/L Anion Gap 11 (7-15) mEq/L BUN 39 H (5-24) mg/dL Creatinine 1.0 (0.5-1.5) mg/dL Estimated Creat Clear 116.85 Estimated GFR 110 ml/min Glucose 109 (60-115) mg/dL Calcium 9.7 (8.4-10.6) mg/dL Total Bilirubin 2.1 H (0.1-1.5) mg/dL Direct Bilirubin 0.4 (0.0-0.5) mg/dL AST 51 H (12-35) U/L ALT 33 (4-50) U/L Alkaline Phosphatase 107 (40-150) U/L Total Protein 7.8 (6.0-8.3) g/dL Albumin 5.0 (3.3-5.0) g/dL Lipase 61 (23-300) U/L Discharge Plan Discharge Clinical Impression: Nausea & vomiting, Panic attack Patient Disposition: Home, Self-Care Condition: Improved Additional Instructions: Rest, clear liquids in frequent small amounts, advance diet slowly as tolerated. Tylenol for pain. Follow-up if symptoms are worsening or not improving. Your labs are all reassuring. Prescriptions: No Action monoxidil Patient Comments: hair growth Follow Up/Referrals: Provider,Not a Local [Primary Care Provider] - Stand Alone Forms: [address] [employer] Info Instructions
[2024-09-08 02:55] LABS: Chloride* 98 mmol/L (96-114); Sodium* 137 mmol/L (135-149)
[2024-09-08 02:56] LABS: Potassium* 4.6 mmol/L (3.6-5.1)
[2024-09-08 02:58] LABS: Alkaline Phosphatase* 107 U/L (40-150); Anion Gap 11 mEq/L (7-15); Aspartate Amino Transferase* 51 U/L (12-35); Bilirubin Direct* 0.4 mg/dL (0.0-0.5); Bilirubin Total* 2.1 mg/dL (0.1-1.5); Blood Urea Nitrogen* 39 mg/dL (5-24); Carbon Dioxide* 28 mmol/L (20-32); Est. Creatinine Clearance* 116.85; Estimated Glomerular Filt Rate 110 ml/min; Glucose* 109 mg/dL (60-115); Total Protein* 7.8 g/dL (6.0-8.3)
[2024-09-08 02:59] LABS: Alanine Aminotransferase* 33 U/L (4-50); Calcium* 9.7 mg/dL (8.4-10.6); Lipase* 61 U/L (23-300)
--- OUTSIDE RECORDS SUMMARY | 2024-09-08 03:07 | XMS_ITS | Clinical Summary ---
Author Organization [facility] Address [address] [place] [address] Care Team Providers Care Receivable Manager Name Role Phone Beck Lawrence MD Primary Care Provider [phone] Allergies No known active allergies Medications minoxidil [...] Meningococcal ACWY conjugate (Menactra) 01/05/2020,08/22/2014 Novel influenza Q7V2-05, all formulations 05/02/2009 Pneumococcal conjugate PCV7 (Prevnar) [...] Procedure Name Priority Date/Time Associated Diagnosis Comments PREMANAGE Routine 09/08/2024 3:05 AM PST Procedure Note - 09/08/2024 3:05 AM PSTThis note is in progress. Patient has visited an external emergency department or has beenhospitalized outside of [facility] --MOST RECENT VISIT-- ED Admit:09/08/24 03:04 Location:[facility] Attending Provider:Wilmer Encounter Type:Emergency Major Class:Emergency Chief Complaint:mental health issue/anxiety Diagnosis: ED/UCC VISIT TRACKING (3 MO.) Visit Date Location [facility] TypeDx/Complaint -------- ------- 09/08/2024 03:04 [facility]. MNEmergency mental health issue/anxiety INPATIENT VISIT TRACKING (1 MO.) Visit Date Location [facility] Type Dx/Complaint -------- ------- ---- ED VISIT COUNT (12 MO.) Visits Location ------ --------- 1 [facility] and [place] [address] Total Note: Visits indicate total known visits. --- --CARE GUIDELINES-- (Below are the most recent care guidelines entered by a Medicine careprovider in [facility]. If Medicine guidelines do not exist in [facility], the mostrecent care guideline entered by an external hospital care provider isdisplayed.) [facility] has no Care Guidelines for this patient. Security Events No recent Security Events currently on file --CARE PROVIDERS-- CARE PROVIDERS Name Phone TypeService Dates ---- ----- BECK LAWRENCE [phone] Family Medicine: GeriatricMedicine Unknown - Current WILL KING [phone] Internal MedicineUnknown - Current HEPATITIS C AB WITH REFLEX PCR Remote Lab 01/26/2024 4:28 PM PDT Need for hepatitis C screening test from Last 3 Months or Most Recently Relevant to Health Maintenance Results * Hepatitis C Ab with REFLEX PCR (01/26/2024 4:28 PM PDT) Hepatitis C Antibody w/Rflx PCR Nonreactive NREA 01/27/2024 9:27 AM PDT Lab Med, Virology Hepatitis C Antibody Interpretation No evidence of antibody to hepatitis C virus (HCV). Anti-HCV may develop slowly (6 weeks - 6 months) over the course of hepatitis C virus infection. Rarely it may be absent in cases of chronic infection. Anti-HCV may also disappear after recovery from acute, self-limited disease. 01/27/2024 9:27 AM PDT Lab Med, Virology Blood specimen (specimen) 01/26/2024 4:28 PM PDT us Beck Lawrence MD LAB BLOOD ORDERABLES Final Re sult LAB MED, VIROLOGY [address] [place] [address] Lab Med, Virology [address] [place] [address] from Last 3 Months or Most Recently Relevant to Health Maintenance Insurance [facility] PLAN Care Teams Receivable Manager Relationship Specialty Start Date End Date Beck Lawrence MD [address] [address] PCP - General Family Practice 01/25/24
--- OUTSIDE RECORDS SUMMARY | 2024-09-08 03:07 | XMS_ITS | Clinical Summary ---
Author Organization [facility] Address [address] [place] [address] Care Team Providers Care Elevator Worker Name Role Phone Unavailable Primary Care Provider Unavailabl e Source Comments NOTE: The information displayed by Care Everywhere is extracted from the complete medical record and may not identify all current or past patient conditions.[facility] Immunizations Immunization Administration Dates Next [...] 06/23/2022, 06/30/2021, 11/09/2020, Additional history exists Vaccine: SNbI-Hwor-Wz (7 - T d or Tdap) 08/22/2024 08/22/2014, 02/10/2007, 08/07/2004, Additional history exists Vaccine: HPV Completed 05/27/2016, 08/22/2014 Advance Directives For more information, please contact: [phone] Documents on File Type Date Recorded Patient Percher Expl anation Durable Power of It Application Administrator
--- OUTSIDE RECORDS SUMMARY | 2024-09-08 03:07 | XMS_ITS | Clinical Summary ---
Author Organization [facility] Address [address] [place] [address] Care Team Providers Care Underground Truck Operator Name Role Phone Pcp, No Primary Care Provider Unavailabl e Allergies No known active allergies Medications fluticasone (50 mcg per actuation) nasal solution (FLONASE) Inhale 1 Sharon into affected nostril(s) once daily. Active minoxidiL [...] Comments Blood Pressure 118/68 05/13/2024 10:41 AM BAIL AGENT Pulse 50 05/13/2024 10:41 AM BAIL AGENT Temperature 36.8 C (98.2 F) 11/29/2022 8:17 AM CDT Respiratory Rate 20 11/29/2022 8:17 AM CDT Oxygen Saturation 98% 05/13/2024 10:41 AM BAIL AGENT Inhaled Oxygen Concentration - - Weight 72.6 kg (160 lb) 05/11/2023 3:20 PM BAIL AGENT Height 175.3 cm (5' 9) 11/27/2022 5:00 [...] patient's age to complete this topic Insurance [id number]-AR-[facility] Advance Directives * Full Code (Latest Code Status on File) Date Activated Date Inactivated Comments 11/26/2022 9:38 PM 11/29/2022 1:53 PM Question Answer Comments Code Status Discussion: Other Care Teams Underground Truck Operator Relationship Specialty Start Date End Date Pcp, No . PCP - General 11/26/22
--- OUTSIDE RECORDS SUMMARY | 2024-09-08 03:07 | XMS_ITS | Clinical Summary ---
Author Organization [facility] Address [address] [place] [address] Care Team Providers Care Senior Laboratory Technician Name Role Phone Kvng Hollingsworth MD Primary Care Provider [phone] Allergies No known active allergies Medications minoxidil [...] exists Vaccine: HPV Completed 05/27/2016, 08/22/2014 Insurance [facility] [employer] CHOICE PPO Care Teams Senior Laboratory Technician Relationship Specialty Start Date End Date Kvng Hollingsworth MD [address] [place] [address] PCP - General 12/13/18
--- OUTSIDE RECORDS SUMMARY | 2024-09-08 03:07 | XMS_ITS | Encounter Summary ---
Author Organization [facility] Address [address] [place] [address] Care Team Providers Care Director Of Marketing Name Role Phone Kvng Hollingsworth MD Primary Care Provider [phone] Angela Cordero MD Primary Care Provider [phone] Moises Lawrence MD Primary Care Provider [phone] Encounter Details Date Type Department Care Team (Late st Contact Info) Description 09/03/2004 [facility]IS[facility] Chaitanya Beckham MD Address Alert - Do Not Mail [address] [place] [address] DIARRHEA Social History Tobacco Use [...] Diarrhea documented in this encounter Care Teams Director Of Marketing Relationship Specialty Start Date End Date Kvng Hollingsworth MD [facility] [address] [place] [address] PCP - General Pediatric Medicine 11/08/08 12/10/22 [place] [address] [facility], [address] [place] [address] PCP - General Family Practice 12/11/22 01/24/24 Moises Lawrence MD [address], [address] [address] PCP - General Family Practice 01/25/24 documented as of this encounter
--- OUTSIDE RECORDS SUMMARY | 2024-09-08 03:07 | XMS_ITS | Encounter Summary ---
Author Organization [facility] Address [address] [place] [address] Care Team Providers Care Artists' Model Name Role Phone Kvng Hollingsworth MD Primary Care Provider [phone] Angela Cordero MD Primary Care Provider [phone] Moises Lawrence MD Primary Care Provider [phone] Encounter Details Date Type Department Care Team (Late st Contact Info) Description 02/15/2005 [facility] VISIT [facility] Jeferson Osullivan MD [address] [id number] [facility] DISLOC ELBOW NOS; FALL + STRIKE [...] object documented in this encounter Care Teams Artists' Model Relationship Specialty Start Date End Date Kvng Hollingsworth MD [facility] [address] [place] [address] PCP - General Pediatric Medicine 11/08/08 12/10/22 [place] [address] [facility], [facility] [address] [place] [address] PCP - General Family Practice 12/11/22 01/24/24 Moises Lawrence MD [address] [address] PCP - General Family Practice 01/25/24 documented as of this encounter
--- OUTSIDE RECORDS SUMMARY | 2024-09-08 03:07 | XMS_ITS | Referral Summary ---
Author Organization [facility] Address [address] [place] [address] Care Team Providers Care Shipbuilding Draftsperson Name Role Phone Kvng Hollingsworth MD Primary Care Provider [phone] Allergies No known active allergies Medications minoxidil [...] Plan of Treatment Not on file Insurance [facility] FIRST CHOICE PPO Care Teams Shipbuilding Draftsperson Relationship Specialty Start Date End Date Kvng Hollingsworth MD [address] [place] [address] PCP - General 12/13/18
--- OUTSIDE RECORDS SUMMARY | 2024-09-08 03:07 | XMS_ITS | Clinical Summary ---
Author Organization [facility] Address [address] [place] [address] Care Team Providers Care Packaging Associate Name Role Phone Kvng Hollingsworth MD Primary Care Provider [phone] Allergies No known active allergies Medications doxycycline [...] patient's age to complete this topic Insurance [place] Care Teams Packaging Associate Relationship Specialty Start Date End Date Kvng Hollingsworth MD [address] [place] [id number] PCP - General 03/20/08
--- OUTSIDE RECORDS SUMMARY | 2024-09-08 03:08 | XMS_ITS | Clinical Summary ---
Author Organization [facility] Address [address] [place] [address] Phone Care Team Providers Care Night Monitor Name Role Phone Kvng Hollingsworth Primary Care Provider [phone] Allergies No known active allergies Medications clindamycin [...] Department Care Team Description 06/24/2024 10:45 AM [facility] [address] [place] [address] Chester Rios MD Androgenetic alopecia (Primary Dx); Seborrheic dermatitis; Epidermoid cyst of skin 06/23/2024 10:00 AM PST Office Visit [facility] [address] [place] [address] Chauncey Miller III, DPM Achilles tendinosis of both ankles (Primary Dx); Bilateral ankle pain, unspecified chronicity; Jarocho's deformity of both heels; Gastrocnemius equinus, unspecified laterality 06/23/2024 9:05 AM [facility] Ancillary Procedure [facility] [address] [place] [address] Chauncey Miller III, DPM from Last 3 [...] Subscriber:Child Name:Radha Bajwa Date of :1967 Address: [address] [place] [id number] Payer ID:Not on file Type:Not on file Address: [place] [id number] [employer] [place] [id number] [employer] Care Teams Night Monitor Relationship Specialty Start Date End Date Kvng Hollingsworth [address] [place] [address] PCP - General 06/25/16
--- OUTSIDE RECORDS SUMMARY | 2024-09-08 03:08 | XMS_ITS | Referral Summary ---
Author Organization [facility] Address [address] [place] [address] Phone Care Team Providers Care Baling Machine Operator Name Role Phone Kvng Hollingsworth Primary Care Provider [phone] Encounters Date Type Department Care Team Description 06/24/2024 10:45 AM [facility] Office Visit [facility] [address] [place] [address] Chester Rios MD Androgenetic alopecia (Primary Dx); Seborrheic dermatitis; Epidermoid cyst of skin 06/23/2024 9:05 AM [facility] Ancillary Procedure [facility] [address] [place] [address] Chauncey Miller III, DPM 06/23/2024 10:00 AM [facility] Office Visit [facility] [address] [place] [address] Chauncey Miller III, DPM Achilles tendinosis of [...] Insurance [employer] [place] [id number] [facility] [employer] PL[employer] Care Teams Baling Machine Operator Relationship Specialty Start Date End Date Kvng Hollingsworth [address] [place] [address] PCP - General 06/25/16
== END 2024-09-08 03:17 | disposition home or self-care (01) ==
PROVIDERS: Emergency Provider Family Medicine
DX: R11.2 Nausea with vomiting, unspecified (principal); F41.0 Panic disorder [episodic paroxysmal anxiety]
CPT/HCPCS: 36415; 80048; 80076; 83690; 85025; 96374; 99282; 99284; J2405; J7030

== ENCOUNTER 2024-11-24 18:51 | Outpatient (CLI) | payer BC, SELFPAY ==
--- NOTE | 2024-11-24 19:00 | MR_ITS ---
[address] [address] Phone:?[phone] Fax:?[phone] Referring Physician Information: Evelyn Case [address] [facility] [address] Phone:?[phone] Fax:?[phone] Patient:?Tha Lincoln D.O.B:?2005 Sex:?Male Phone:?[phone] [facility] MRN:?[id number] Exam Date:?11/24/2024 EXAM: MRI OF THE RIGHT ANKLE WITHOUT CONTRAST CLINICAL INFORMATION: Male, 19 years old, with right ankle pain. INDICATION: Evaluate for ligament injury. PRIOR SURGERY: None reported. PLAIN FILMS: Radiographs dated 11/14/2024. COMPARISONS: No prior MRIs available. TECHNICAL INFORMATION: Using a 1.5T MR scanner and a localizing surface coil: sagittals: PD, T2, STIR coronals: PD, T2FS axials: PD, T2FS, PDFS oblique SEDATION: None. CONTRAST: None. FINDINGS: Osseous structures: Mild-moderate edema-like signal is present throughout the medial & lateral malleolus, and posterolateral aspect of the talar dome, without evidence of a fracture. Os trigonum: No os trigonum or abnormally prominent Stieda's process. Tarsal coalition: No calcaneonavicular, talocalcaneal or cubonavicular coalition. Tibiotalar joint: Effusion: Moderate tibiotalar joint effusion, with synovitis. Ganglion cyst: None. Osteochondral surfaces: Mild generalized thinning of the articular cartilage throughout the tibiotalar joint, with mild anterior marginal osteophytosis. Loose bodies: 3 small intra-articular bodies are present in the posterior aspect of the tibiotalar joint measuring approximately 4-5 mm (sagittal PD series 5 image 15 and axial PD series 3 images 12 & 13). Subtalar joint: Effusion: Physiologic. Articular cartilage: No osteochondral abnormality. Tarsal joints: Talonavicular: Unremarkable. Calcaneocuboid: Unremarkable. Naviculocuneiform: Unremarkable. Tarsometatarsal: Unremarkable. Ligaments: Syndesmotic ligaments:?The anterior and posterior inferior tibiofibular syndesmotic ligaments are normal. Lateral ligaments:?Marked sprain and high-grade tearing of the anterior talofibular and calcaneofibular ligaments (axial PD series 3 images 14-19). Deltoid ligament:?The visualized components of the superficial and deep deltoid ligament, specifically the tibiospring and posterior tibiotalar ligaments, are intact. Calcaneonavicular spring ligament:?The superomedial component of the calcaneonavicular spring ligament is grossly intact, but mildly-moderately thickened and amorphous in appearance (axial PD series 3 image 18). Bifurcate and calcaneocuboid ligaments:?Intact lateral calcaneonavicular and medial calcaneocuboid ligaments. The dorsolateral calcaneocuboid ligament is intact. Tendons: Peroneal:?The peroneal tendons are appropriately situated within the retromalleolar groove and the superior peroneal retinaculum is intact. Normal thickness and signal intensity without tendinopathy, tenosynovitis, or split/tear. Flexor tendons:?Mild posterior tibialis tendinopathy, without tear. Flexor hallucis longus and flexor digitorum longus are intact, without tendinopathy or tear. Extensor tendons:?The anterior tibialis, extensor digitorum longus, and extensor hallucis longus tendons are intact. No significant tendinopathy and without tenosynovitis, tendon split or tendon disruption. Achilles:?Intact, without tendinopathy or tear. No retrocalcaneal or retro- Achilles bursitis. Sinus tarsi:?The sinus tarsi signal is normal. Plantar aponeurosis: There is no abnormal thickening of, abnormal intrasubstance signal involving, or perifascial edema about the plantar aponeurosis. Specifically, the plantar fascia origin appears normal in signal intensity and morphology. Plantar musculature:?The intrinsic foot musculature is normal in bulk and signal intensity without evidence of denervation atrophy. Neurovascular structures and tarsal tunnel: The posterior tibial neurovascular structures appear unremarkable coursing past the ankle and through the tarsal tunnel. IMPRESSION: 1. Marked sprain and high-grade tearing of the anterior talofibular and calcaneofibular ligaments. 2. Mild-moderate contusions of the medial and lateral malleoli and posterolateral aspect of the talar dome, without evidence of a fracture. 3. 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 There is relatively prominent anterior osteophytosis, which could reflect any clinical evidence of anterior impingement. 4. Mild posterior tibialis tendinopathy, without tear. 5. Chronic low-grade sprain of the superomedial calcaneonavicular spring ligament. 6. No other myotendinous abnormality. BC Electronically signed on 11/25/2024 10:20:00 AM by Theodore Mejia M.D.
== END 2024-11-24 18:52 | disposition home or self-care (01) ==
LOC: MRI 18:51
PROVIDERS: Visit Provider Physician Assistant Surgical
DX: M25.571 Pain in right ankle and joints of right foot (principal); S93.411A Sprain of calcaneofibular ligament of right ankle, initial encounter; M19.071 Primary osteoarthritis, right ankle and foot; M25.471 Effusion, right ankle; S93.491A Sprain of other ligament of right ankle, initial encounter
CPT/HCPCS: 73721